=== PATIENT | male | born 1950 | race Caucasian/White ===

== ENCOUNTER 2017-10-02 01:41 | Emergency (ER) | payer BC, MEDICARE ==
--- NOTE | 2017-10-02 03:19 | RADIOLOGY REPORT (SQ) ---
EXAM DESCRIPTION: KNEE LEFT 3 VIEWS CLINICAL HISTORY: 67 years, Male, knee pain COMPARISON: None. NUMBER OF VIEWS: 4 LIMITATIONS: None. FINDINGS: Moderate chondrocalcinosis of the medial and lateral compartments. Atherosclerosis. No effusion. IMPRESSION: Moderate chondrocalcinosis of the left knee. 2011 [employer]- All Rights Reserved
[2017-10-02] MEDS ORDERED: HYDROCODONE/ACETAMINOPHEN 5-325 MG 6 TAB/DSPK PO PRN (03:29)
--- NOTE | 2017-10-02 03:30 | ER Document Report ---
ED General - General Chief Complaint: Knee Injury Stated Complaint: LEFT KNEE PAIN Time Seen by Provider: 10/02/17 02:22 TRAVEL OUTSIDE OF THE [place] IN LAST 30 DAYS: No - HPI Patient complains to provider of: Left knee pain Notes: Patient coming in for evaluation of left knee pain. Patient states he twisted his left knee denied. Patient does not feel a pop. Patient states difficulty in ambulating on his knee. Patient states he has pain in the medial side of his knee especially to palpation. - Related Data Allergies/Adverse Reactions: No Known Allergies Allergy (Unverified 11/15/12 06:03) Past Medical History - Social History Smoking Status: Unknown if Ever Smoked Family History: Reviewed & Not Pertinent Patient has suicidal ideation: No Patient has homicidal ideation: No - Past Medical History Cardiac Medical History: Denies: Hx Coronary Artery Disease, Hx Heart Attack, Hx Hypertension Pulmonary Medical History: Reports: Hx Bronchitis - HX OF BRONCHITIS (RESOLVED) Denies: Hx COPD, Hx Pneumonia Neurological Medical History: Denies: Hx Cerebrovascular Accident, Hx Seizures Renal/ Medical History: Denies: Hx Peritoneal Dialysis Musculoskeltal Medical History: Denies Hx Arthritis Past Surgical History: Reports: Hx Orthopedic Surgery - [facility], LUMBAR LAMINECTOMY - Immunizations Hx Diphtheria, Pertussis, Tetanus Vaccination: Yes Review of Systems - Review of Systems Constitutional: No symptoms reported EENT: No symptoms reported Cardiovascular: No symptoms reported Respiratory: No symptoms reported Gastrointestinal: No symptoms reported Genitourinary: No symptoms reported Male Genitourinary: No symptoms reported Musculoskeletal: Other - Knee pain Skin: No symptoms reported Hematologic/Lymphatic: No symptoms reported Neurological/Psychological: No symptoms reported -: Yes All other systems reviewed and negative Physical Exam - Vital signs Vitals: Temp Pulse Resp BP Pulse Ox 97.7 F 83 18 141/79 H 98 10/02/17 01:46 10/02/17 01:46 10/02/17 01:46 10/02/17 01:46 10/02/17 01:46 Interpretation: Normal - General General appearance: Appears well, Alert - HEENT Head: Normocephalic, Atraumatic Eyes: Normal Pupils: PERRL - Back Back: Normal, Nontender - Extremities General upper extremity: Normal inspection, Nontender, Normal color, Normal ROM , Normal temperature General lower extremity: Normal inspection, Normal color, Normal ROM, Normal temperature, Normal weight bearing, Other - Patient has tenderness to palpation of the medial collateral ligament. Patient has no pain though r laxity on valgus varus anterior posterior drawer testing of the left knee.. No: Virgilio's sign - Neurological Neuro grossly intact: Yes Cognition: Normal Orientation: AAOx4 Xu Coma Scale Eye Opening: Spontaneous [place] Coma Scale Verbal: Oriented Xu Coma Scale Motor: Obeys Commands Xu Coma Scale Total: 15 Speech: Normal Motor strength normal: LUE, RUE, LLE, RLE Sensory: Normal - Psychological Associated symptoms: Normal affect, Normal mood - Skin Skin Temperature: Warm Skin Moisture: Dry Skin Color: Normal Course - Re-evaluation Re-evalutation: 10/02/17 05:14 X-ray was performed no signs of fracture diffuse arthritic changes. Explained to patient that we would not be available to see any signs of ACL PCL tear is that this is the patient's main concern. Recommended we can have her rest ice elevation support with Gulshan bandage follow-up with his primary care physician if this continued for possible MRI at that time. - Vital Signs Vital signs: Temp Pulse Resp BP Pulse Ox 97.7 F 83 18 141/79 H 98 10/02/17 01:46 10/02/17 01:46 10/02/17 01:46 10/02/17 01:46 10/02/17 01:46 Discharge - Discharge Clinical Impression: Knee sprain Qualifiers: Encounter type: sequela Involved ligament of knee: unspecified ligament Laterality: left Qualified Code(s): S83.92XS - Sprain of unspecified site of left knee, sequela Condition: Good Disposition: HOME, SELF-CARE Instructions: Ice & Elevation ([facility]), Suspected Internal Knee Injury ([facility]), Sprained Knee ([facility]), Oral Narcotic Medication ([facility]), Gulshan Wrap ([facility]) Additional Instructions: Your x-ray shows extensive osteoarthritis of your knee however is no signs of any fracture. More likely sprained her knee or possibly tore ligament. I do not have the capability of diagnosing that here in the ER is that we do not have an MRI would highly recommend keeping the knee wrapped with the Gulshan bandage. He may take Tylenol and Motrin for your pain may take pain medication prescribed as directed. Return to the ER symptoms worsen. Follow-up with your primary care physician or the orthopedic provided. Prescriptions: Hydrocodone Bit/Acetaminophen [Hydrocodon-Acetaminophen 5-325] 1 each PO Q6 #14 tablet Forms: Return to Work Referrals: RUBÉN TROY MD [Primary Care Provider] - Follow up as needed JOSE MANUEL AGUIRRE MD [ACTIVE STAFF] - Follow up as needed
[2017-10-02 04:00] VITALS: BP 138/81
== END 2017-10-02 03:57 | disposition home or self-care (01) ==
LOC: ER 01:41
DX: S83.92XA Sprain of unspecified site of left knee, initial encounter (principal); M25.562 Pain in left knee; X50.0XXA Overexertion from strenuous movement or load, initial encounter
CPT/HCPCS: 99283

== ENCOUNTER 2018-08-18 11:52 | Day surgery (SDC) | payer BC ==
[2018-08-18] MEDS ORDERED: ONDANSETRON HCL INJ/PF 4 MG/2 ML SDV ONE (12:20)
[2018-08-18] MEDS ORDERED: NALOXONE HCL INJ/PF 0.4 MG/1 ML SDV ONE (12:21)
[2018-08-18] MEDS ORDERED: FLUMAZENIL INJ 0.5 MG/5 ML VIAL ONE (12:21)
[2018-08-18] MEDS ORDERED: EPINEPHRINE INJ 1 MG/10 ML DISP.SYRIN ONE (12:22)
[2018-08-18] MEDS ORDERED: GLUCAGON,HUMAN RECOMB 1 MG INJ ONE (12:22)
[2018-08-18] MEDS: MIDAZOLAM 2 MG/2 ML INJ ONE ×3 (12:37→12:50)
[2018-08-18] MEDS: FENTANYL CITRATE INJ/PF 100 MCG/2 ML AMPUL ONE ×3 (12:39→12:46)
--- NOTE | 2018-08-18 13:10 | Operative Report ---
Operative Report DATE OF SURGERY: 08/18/18 Operative Report: The risks, benefits and alternatives of the procedure including the risks of bleeding, perforation requiring surgery are explained to the patient in detail and informed consent is obtained. Patient is placed in a left, lateral decubital position. Timeout was called. Conscious sedation medications are provided. A rectal examination is done which did not reveal any masses, tears or fissures. An Olympus videoscope was inserted to the patient's rectum. The scope was then carefully advanced all the way to the cecum. The cecum was identified by the usual anatomical landmarks including the ileocecal valve as well as the appendiceal office. Photodocumentation is obtained. Prep was good. The scope was then sequentially pulled back via the rest segments of the colon including the ascending colon, hepatic flexure, transverse colon, splenic flexure, descending colon and finally into the rectosigmoid portions of the colon. Retroflexion maneuvers performed. PREOPERATIVE DIAGNOSIS: Colorectal cancer screening POSTOPERATIVE DIAGNOSIS: Large polyp noted in the area of the cecum status post removal with snare polypectomy. 2 endoclips were placed at the base of the resected site to reduce the risk of post polypectomy bleeding. 2 transverse colon polyps are noted and removed via snare polypectomy and retrieved. Internal hemorrhoids OPERATION: Colonoscopy with snare polypectomy SURGEON: GURU JOHNSON ANESTHESIA: Moderate Sedation - 6 mg of Versed, 100 mcg of fentanyl. Conscious sedation monitoring time 30 minutes. TISSUE REMOVED OR ALTERED: As noted above. COMPLICATIONS: None. ESTIMATED BLOOD LOSS: None. INTRAOPERATIVE FINDINGS: As noted above. PROCEDURE: Patient tolerated the procedure well. No immediate postprocedure complications are noted. Patient discharged in good condition. Discharge date 08/18/2018. Discharge diet: Regular. Discharge activity: Regular. 2-3-week follow-up to discuss findings. Patient is instructed call the office or proceed to the emergency room should there be any further proximal questions. Suspect could probably go for 3-year surveillance although depending on the pathology of the polyp may need to see him next year for surveillance colonoscopy.
[2018-08-18 14:26] VITALS: BP 126/77
== END 2018-08-18 14:05 | disposition home or self-care (01) ==
LOC: END 11:52
PROVIDERS: ATTEND Internal Medicine Gastroenterology
DX: Z12.11 Encounter for screening for malignant neoplasm of colon (principal); D12.0 Benign neoplasm of cecum; D12.3 Benign neoplasm of transverse colon; K64.8 Other hemorrhoids
CPT/HCPCS: 45385; 88305 ×2; J2250; J3010; J0171; J1610; J2310; J2405; J3490